=== PATIENT | female | born 1960 | race Two or more races ===

== ENCOUNTER → 2018-06-14 | Outpatient (CLI) | payer OTHER ==
[~2018-06-14] MED LIST: IOPAMIDOL (ISOVUE-300) 100 ML BTL ONE
== END ==
LOC: CIMAGING 08:08
PROVIDERS: ATTEND Nurse Practitioner
DX: R27.0 Ataxia, unspecified (principal); C43.72 Malignant melanoma of left lower limb, including hip
CPT/HCPCS: 70470-PO; Q9967